=== PATIENT | female | born 1985 | race Caucasian/White ===

== ENCOUNTER 2017-04-06 20:28 | Emergency (ER) | payer BC ==
[~2017-04-06] VITALS: Ht 157.5 cm; Wt 96.6 kg
[~2017-04-06 20:28] MED LIST: BENADRYL25 MG PO; CIPRO500 MG PO; CITALOPRAM HBR40 MG PO; CLINDAMYCIN HC150 MG PO; CLINDAMYCIN HC300 MG PO; EFFEXOR XR37.5 MG PO; MULTIVITAMINS1 EAC7 PO; NAPROXEN500 MG PO; NORCO 5-325 TA1 EACH PO; OMEPRAZOLE20 MG PO; PREDNISONE20 MG PO; PRENATAL ONE T1 EACH PO; ULTRAM50 MG PO; VITA-C120 GM PO; WELLBUTRIN XL300 MG PO; XANAX1 MG PO; ZITHROMAX250 MG PO; ZOFRAN ODT4 MG PO
[2017-04-06] MEDS ORDERED: NEXPLANON68 MG SUB-Q (20:40)
[2017-04-06] MEDS ORDERED: EFFEXOR XR75 MG PO (20:41)
[2017-04-06] MEDS ORDERED: MEDROL2 MG PO (21:32)
== END 2017-04-06 21:43 | disposition home or self-care (01) ==
LOC: ED 20:28
DX: J40 Bronchitis, not specified as acute or chronic (principal); F17.200 Nicotine dependence, unspecified, uncomplicated; Z90.89 Acquired absence of other organs; Z88.8 Allergy status to other drugs, medicaments and biological substances; Z88.1 Allergy status to other antibiotic agents; Z91.010 Allergy to peanuts; Z79.899 Other long term (current) drug therapy
CPT/HCPCS: 71010; 96372; 99283; J1885; J2930

== ENCOUNTER 2018-09-17 20:46 | Emergency (ER) | payer BC ==
[~2018-09-17] VITALS: Ht 157.5 cm; Wt 96.6 kg
[~2018-09-17 20:46] MED LIST changes: +EFFEXOR XR75 MG PO; +MEDROL2 MG PO; +NEXPLANON68 MG SUB-Q
== END 2018-09-17 22:05 | disposition home or self-care (01) ==
LOC: ED 20:46
DX: R10.9 Unspecified abdominal pain (principal); J45.909 Unspecified asthma, uncomplicated; F17.200 Nicotine dependence, unspecified, uncomplicated; Z88.8 Allergy status to other drugs, medicaments and biological substances; Z88.1 Allergy status to other antibiotic agents; Z88.0 Allergy status to penicillin; Z91.010 Allergy to peanuts; Z79.899 Other long term (current) drug therapy
CPT/HCPCS: 80053; 81001; 83690; 84703; 85025; 96361; 96374; 99284-25; J1885; J7030

== ENCOUNTER 2019-10-14 09:25 | Emergency (ER) | payer BC ==
[~2019-10-14] VITALS: Ht 160 cm; Wt 107.5 kg
[2019-10-14] MEDS ORDERED: GABAPENTIN300 MG PO (09:41)
[2019-10-14] MEDS ORDERED: VENTOLIN HFA18 GM INH (10:00)
[2019-10-14] MEDS ORDERED: PREDNISONE20 MG PO (10:00)
== END 2019-10-14 11:46 | disposition home or self-care (01) ==
LOC: ED 09:25
DX: J45.901 Unspecified asthma with (acute) exacerbation (principal); J06.9 Acute upper respiratory infection, unspecified; F17.200 Nicotine dependence, unspecified, uncomplicated; Z88.1 Allergy status to other antibiotic agents; Z91.010 Allergy to peanuts; Z88.8 Allergy status to other drugs, medicaments and biological substances; Z79.899 Other long term (current) drug therapy
CPT/HCPCS: 99283; A9270; J7512

== ENCOUNTER 2019-12-19 11:34 | Emergency (ER) | payer BC ==
[~2019-12-19] VITALS: Ht 160 cm; Wt 112.0 kg
[~2019-12-19 11:34] MED LIST changes: +GABAPENTIN300 MG PO; +VENTOLIN HFA18 GM INH
[2019-12-19] MEDS ORDERED: VENTOLIN HFA18 GM INH (13:19)
[2019-12-19] MEDS ORDERED: PREDNISONE20 MG PO (13:19)
== END 2019-12-19 13:26 | disposition home or self-care (01) ==
LOC: ED 11:34
DX: J45.909 Unspecified asthma, uncomplicated (principal); F17.200 Nicotine dependence, unspecified, uncomplicated; Z88.1 Allergy status to other antibiotic agents; Z91.010 Allergy to peanuts; Z79.899 Other long term (current) drug therapy
CPT/HCPCS: 71046; 94640; 99284-25; J7512; U0002

== ENCOUNTER 2021-08-24 08:44 | Emergency (ER) | payer OTHER ==
[~2021-08-24] VITALS: Ht 160 cm; Wt 118.4 kg
[2021-08-24] MEDS ORDERED: FLOVENT HFA10.6 GM INH (10:15)
[2021-08-24] MEDS ORDERED: ONDANSETRON HCL4 MG PO (10:15)
== END 2021-08-24 10:19 | disposition home or self-care (01) ==
LOC: ED 08:44
DX: S90.31XA Contusion of right foot, initial encounter (principal); J45.909 Unspecified asthma, uncomplicated; F17.200 Nicotine dependence, unspecified, uncomplicated; Z88.0 Allergy status to penicillin; Z91.010 Allergy to peanuts; Z88.8 Allergy status to other drugs, medicaments and biological substances; Z79.52 Long term (current) use of systemic steroids; Z79.899 Other long term (current) drug therapy; W20.8XXA Other cause of strike by thrown, projected or falling object, initial encounter; Y93.01 Activity, walking, marching and hiking
CPT/HCPCS: 73630; 99283-25; A9270

== ENCOUNTER 2022-05-13 19:19 | Emergency (ER) | payer OTHER ==
[~2022-05-13] VITALS: Ht 160 cm; Wt 131.5 kg
[~2022-05-13 19:19] MED LIST changes: +FLOVENT HFA10.6 GM INH; +ONDANSETRON HCL4 MG PO
--- NOTE | 2022-05-14 18:01 | EKG ---
[facility] [address] [place] [address] Signed Sinus tachycardia with premature atrial complexes with aberrant conduction Otherwise normal ECG No previous ECGs available Confirmed by CRISTBOAL MONSALVE MD ([id number] on 05/14/2022 6:00:56 PM Electronically Signed By: CRISTOBAL MONSALVE MD 05/14/221800 PATIENT NAME: EDITH DAMON BÁRBARA Electrocardiogram DATE OF : 89 PHYSICIAN: CRISTOBAL MONSALVE MD REPORT #: [id number] REPORT IS CONFIDENTIAL AND NOT TO BE RELEASED WITHOUT AUTHORIZATION
== END 2022-05-14 | disposition home or self-care (01) ==
LOC: ED 19:19
DX: R07.89 Other chest pain (principal); J45.909 Unspecified asthma, uncomplicated; F17.200 Nicotine dependence, unspecified, uncomplicated; Z88.8 Allergy status to other drugs, medicaments and biological substances; Z91.010 Allergy to peanuts; Z88.1 Allergy status to other antibiotic agents; Z79.899 Other long term (current) drug therapy
CPT/HCPCS: 36415; 71045; 80053; 81001; 83605; 84484; 84703; 85025; 87040; 93005; 93010; 96365; 99285-25; A9270; G0480; J1956; J7030; J7121

== ENCOUNTER 2022-05-21 10:08 | Emergency (ER) | payer OTHER ==
[~2022-05-21] VITALS: Ht 160 cm; Wt 131.5 kg
--- OUTSIDE RECORDS SUMMARY | 2022-05-21 10:10 | XMS ---
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 Nora has no Care Guidelines for this patient. [facility] (12 MO.) [facility] NOTE: Visits indicate total known visits. ED[facility] [place] [facility] (12 MO.) [facility] COMPLAINT: - POSS HEART ATTACK 05/13/2022 19:19 [facility] TYPE: Emergency COMPLAINT: - CHEST PAIN 08/24/2021 08:44 [facility] [place] TYPE: Emergency COMPLAINT: - R FOOT PAIN DIAGNOSES: - Nicotine dependence, unspecified, uncomplicated - Allergy status to other drugs, medicaments and biological substances - Allergy to peanuts - Other supervisor intermediates (current) drug therapy - Contusion of right foot, initial encounter - intermediate designer (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
[2022-05-21] MEDS ORDERED: HYDROXYZINE HCL25 MG PO (10:41)
[2022-05-21] MEDS ORDERED: CHILDREN'S ASPI81 M1 PO (10:42)
--- NOTE | 2022-05-23 20:49 | EKG ---
[facility] [address] [place] [address] Signed Normal sinus rhythm Normal ECG No previous ECGs available Confirmed by Hai Cabrera MD () on 05/23/2022 8:48:56 PM Electronically Signed By: HAI CABRERA MD 05/23/222048 PATIENT NAME: EDITH DAMON Electrocardiogram DATE OF : 89 PHYSICIAN: HAI CABRERA MD REPORT #: [id number] REPORT IS CONFIDENTIAL AND NOT TO BE RELEASED WITHOUT AUTHORIZATION
== END 2022-05-21 13:00 | disposition home or self-care (01) ==
LOC: ED 10:08
DX: M54.12 Radiculopathy, cervical region (principal); J45.909 Unspecified asthma, uncomplicated; F17.200 Nicotine dependence, unspecified, uncomplicated; Z88.0 Allergy status to penicillin; Z91.010 Allergy to peanuts; Z88.1 Allergy status to other antibiotic agents; Z88.8 Allergy status to other drugs, medicaments and biological substances; Z79.899 Other long term (current) drug therapy
CPT/HCPCS: 36415; 71045; 80053; 81001; 84484; 84703; 85025; 85379; 93005; 93010; 99285-25; G0480

== ENCOUNTER 2024-10-30 11:09 | Emergency (ER) | payer OTHER ==
[~2024-10-30] VITALS: Ht 160 cm; Wt 89.2 kg
[~2024-10-30 11:09] MED LIST changes: +BACTRIM DS TAB1 EACH PO; +CHILDREN'S ASPI81 M1 PO; +HYDROCODON-ACE1 EA10 PO; +HYDROXYZINE HCL25 MG PO; +LEVOFLOXACIN500 MG PO; +NITRO-TIME2.5 MG PO
[2024-10-30 13:40] VITALS: BP 125/80
== END 2024-10-30 13:40 | disposition home or self-care (01) ==
LOC: ED 11:09
DX: S50.12XA Contusion of left forearm, initial encounter (principal); I25.2 Old myocardial infarction; J45.909 Unspecified asthma, uncomplicated; F17.200 Nicotine dependence, unspecified, uncomplicated; Z88.8 Allergy status to other drugs, medicaments and biological substances; Z88.0 Allergy status to penicillin; Z88.1 Allergy status to other antibiotic agents; Z91.010 Allergy to peanuts; Z79.82 Long term (current) use of aspirin; Z79.899 Other long term (current) drug therapy; W20.8XXA Other cause of strike by thrown, projected or falling object, initial encounter; Y99.0 Civilian activity done for income or pay
CPT/HCPCS: 73090; 99283

== ENCOUNTER 2025-02-17 16:44 | Emergency (ER) | payer OTHER ==
[~2025-02-17] VITALS: Ht 160 cm; Wt 91.9 kg
[2025-02-17] MEDS ORDERED: IMITREX50 MG PO (17:03)
[2025-02-17] MEDS ORDERED: DICLOFENAC SODI75 MG PO (17:04)
[2025-02-17] MEDS ORDERED: ERYTHROMYCIN 3.5 GM HOME.PACK OP ONE (18:00)
[2025-02-17 18:12] VITALS: BP 122/72
== END 2025-02-17 18:10 | disposition home or self-care (01) ==
LOC: ED 16:44
DX: H10.9 Unspecified conjunctivitis (principal); R59.0 Localized enlarged lymph nodes; J45.909 Unspecified asthma, uncomplicated; I25.2 Old myocardial infarction; F17.200 Nicotine dependence, unspecified, uncomplicated; Z79.899 Other long term (current) drug therapy; Z79.82 Long term (current) use of aspirin; Z88.0 Allergy status to penicillin; Z91.010 Allergy to peanuts; Z88.8 Allergy status to other drugs, medicaments and biological substances
CPT/HCPCS: 99283